=== PATIENT | female | born 1965 | race African-American/Black ===

== ENCOUNTER 2017-11-08 13:15 | Emergency (ER) | payer MEDICAID ==
[~2017-11-08] VITALS: Ht 165.1 cm; Wt 73.0 kg
[2017-11-08 14:55] VITALS: BP 141/83
== END 2017-11-08 16:56 | disposition home or self-care (01) ==
LOC: ER 16:01
DX: M25.511 Pain in right shoulder (principal); E78.00 Pure hypercholesterolemia, unspecified
CPT/HCPCS: 99282

== ENCOUNTER 2024-04-11 11:40 | Emergency (ER) | payer SELFPAY ==
[~2024-04-11] VITALS: Ht 172.7 cm; Wt 57.0 kg
[2024-04-11 11:41] VITALS: BP 188/90; PULSE 118; RESP 16; TEMP 98.5; O2SAT 98
== END 2024-04-11 12:58 | disposition left against medical advice (07) ==
LOC: ER 11:40
DX: R51.9 Headache, unspecified (principal); Z53.21 Procedure and treatment not carried out due to patient leaving prior to being seen by health care provider